=== PATIENT | female | born 1965 | race Caucasian/White ===

== ENCOUNTER 2017-09-17 20:17 | Emergency (ER) | payer BC ==
[2017-09-17 20:25] VITALS: BP 134/96
--- NOTE | 2017-09-17 20:54 | RAD ---
Indication: Left knee pain. 4 views of left knee demonstrates no fracture. Joint spaces all well-preserved. No other bone or joint abnormality is noted. IMPRESSION: No fracture of the left knee is noted.
--- NOTE | 2017-09-17 21:07 | UC ---
Knee Pain HPI - HPI Summary HPI Summary: 51yo WF c/o left knee injury and pain while playing basketball and another player knee landed on the lateral side of left knee, now c/o pain in medial portion left knee - History of Current Complaint Chief Complaint: UCLowerExtremity Stated Complaint: KNEE INJURY Time Seen by Provider: 09/17/17 20:19 Hx Obtained From: Patient, Family/Hydrodynamicist ?: No Onset/Duration: Sudden Onset Pain Intensity: 4 - Allergies/Home Medications Allergies/Adverse Reactions: Allergies Allergy/AdvReac Type Severity Reaction Status Date / Time epinephrine Allergy See Comment Verified 09/17/17 20:26 Home Medications: Home Medications NK [No Home Medications Reported] 09/17/17 [History Confirmed 09/17/17] PMH/Surg Hx/FS Hx/Imm Hx - Additional Past Medical History Additional PMH: none Previously Healthy: Yes - Surgical History Surgical History: Yes Surgery Procedure, Year, and Place: pituitary - Social History Alcohol Use: Weekly Substance Use Type: None Smoking Status (MU): Never Smoked Tobacco Review of Systems Constitutional: Negative Skin: Negative Eyes: Negative ENT: Negative Respiratory: Negative Cardiovascular: Negative Gastrointestinal: Negative Genitourinary: Negative Motor: Negative Neurovascular: Negative Musculoskeletal: Decreased ROM - left knee pain s/p injury Neurological: Negative Psychological: Negative All Other Systems Reviewed And Are Negative: Yes Physical Exam Triage Information Reviewed: Yes Appearance: Well-Appearing Vital Signs: Initial Vital Signs Temp 36.8 C 09/17/17 20:21 Pulse 90 09/17/17 20:21 Resp 16 09/17/17 20:21 BP 134/96 09/17/17 20:21 Pulse Ox 99 09/17/17 20:21 Eye Exam: Normal ENT Exam: Normal Dental Exam: Normal Neck exam: Normal Neck: Positive: 1 Respiratory Exam: Normal Cardiovascular Exam: Normal Abdominal Exam: Normal Musculoskeletal Exam: Normal Musculoskeletal: Positive: Strength Limited @ - TTP in upper portion of medical collateral ligament and medial meniscus, UNable to bear any weight, sitting on wheelchair, ROM Limited @ - Left knee, Neg jointline tenderness Neurological Exam: Normal Psychological Exam: Normal Skin Exam: Normal Knee Pain Course/Dx - Course Course Of Treatment: XR of left knee neg for fx or dislocation, but suspect Left MCL, meniscal sprain vs tear, ortho f/u, knee immobilizer, crutches and RICE, NSAIDS PRN - Differential Dx/Diagnosis Provider Diagnoses: Left knee injury. Left knee pain. Left knee sprain Discharge - Discharge Plan Condition: Stable Disposition: HOME Referrals: Vesna Koehler MD [Primary Care Provider] -
== END 2017-09-17 21:30 | disposition home or self-care (01) ==
LOC: UCEAST 20:17
DX: M25.562 Pain in left knee (principal); S83.92XA Sprain of unspecified site of left knee, initial encounter; W50.0XXA Accidental hit or strike by another person, initial encounter; Y93.67 Activity, basketball; Y92.310 Basketball court as the place of occurrence of the external cause; Z88.8 Allergy status to other drugs, medicaments and biological substances
CPT/HCPCS: 99212; G0463